=== PATIENT | female | born 1995 | race Two or more races ===

== ENCOUNTER 2024-07-20 10:40 | Observation (INO) | payer MEDICAID ==
--- NOTE | 2024-07-20 12:11 | DVH ---
LIMITED OB ULTRASOUND > 14 WKS: HISTORY: decreased FM TECHNIQUE: Multiple real-time grayscale images of the gravid uterus with duplex Doppler color flow an d M-mode spectral analysis. TRANSDUCER: Transabdominal. FINDINGS/IMPRESSION: IUP single live fetus at 26 weeks 5 days based on composite averages of the BPD, head circumference, abdominal circumference and femur length Estimated weight grams heart rate 148 beats per minute KATJA 20.1 cm Cervix measures 3.5 cm. Cephalic Presentation Anterior Placenta without previa or abruption.
--- NOTE | 2024-07-20 19:52 | DVHDS2 ---
Physician Discharge Progress N Final Diagnosis: DFM, resolved wellbeing established GDM, A2 Operations or Procedures: Operations or Procedures S: 28yo IUP@26.5wks, sent down from office for DFM. Denies UCs/LOF/VB/AGUILAR/vision changes/RUQ pain. Pt reports +FM in OB triage. O: VSS NST reactive A: 28yo IUP@26.5wks DFM, resolved wellbeing established GDM, A2 P: D/C home FKC/PTL precautions reviewed Dr. Mosley consulted, agrees with POC. Other Interventions Other Interventions [place] [address] Ph: [phone] DIAGNOSTIC IMAGING Diagnostic Imaging Report : [id number] Signed PATIENT: AARTI DANCT: [id number] UNIT: [id number] : 1995 LOC: [facility] ROOM / BED: [facility] / A AGE / SEX: 28 / F ADM STATUS: ADM IN SERVICE 1123 ORDERING PHYSICIAN: LITTLE ZHU CNM PROCEDURE(s): OBLTD - OBSTERICAL LIMITED REASON: decreased FM ORDER NUMBER(s): [id number], ACCESSION NUMBER(s): [id number] LIMITED OB ULTRASOUND > 14 WKS: HISTORY: decreased FM TECHNIQUE: Multiple real-time grayscale images of the gravid uterus with duplex Doppler color flow and M-mode spectral analysis. TRANSDUCER: Transabdominal. FINDINGS/IMPRESSION: IUP single live fetus at 26 weeks 5 days based on composite averages of the BPD, head circumference, abdominal circumference and femur length Estimated weight grams heart rate 148 beats per minute KATJA 20.1 cm Cervix measures 3.5 cm. Cephalic Presentation Anterior Placenta without previa or abruption. ATED BY: JOSIANE SETH MD DICTATED DATE/TIME: 07/20/241207 SIGNED BY: JOSIANE SETH MD SIGNED DATE/TIME: 07/20/241207 CC: Condition on Discharge: Stable Disposition: Home Discharge Instructions: Diet: Consistent carbohydrate Activity: No Restrictions, As Tolerated Medications: see med list Follow Up Care: Specialist: f/u in 1 wk Discharge Statement: "Patient was advised to return to the ER or call 911 if any headaches, dizziness, shortness of breath, chest pain, abdominal pain, bleeding, fevers, or worsening of medical condition. Patient was counseled about treatment plan, medications, possible side effects, patientverbalized understanding. All questions were answered to the best of my ability. This discharge took greater then 30 minutes in planning, reviewing documentation, counseling the patient, and discussing with other team members." Visit Coding OBGYN Date of Service: Jul 20, 2024 Billing Provider: LITTLE ZHU CNM TRACK HELPER Common Visit Codes: 81102-[id number] OBS CARE (HIGH) TRACK HELPER Procedure Codes: 10564-33- NON-STRESS TEST LITTLE ZHU CNM Jul 20, 2024 19:52
== END 2024-07-20 13:17 | disposition home or self-care (01) ==
LOC: LDRP 10:40
PROVIDERS: ADMIT Obstetrics & Gynecology; ATTEND Obstetrics & Gynecology
DX: O36.8120 Decreased fetal movements, second trimester, not applicable or unspecified (principal); O24.419 Gestational diabetes mellitus in pregnancy, unspecified control; Z98.890 Other specified postprocedural states; Z79.899 Other long term (current) drug therapy; Z3A.26 26 weeks gestation of pregnancy
CPT/HCPCS: 76815; 81002; G0378

== ENCOUNTER 2024-07-29 07:10 | Observation (INO) | payer MEDICAID ==
[2024-09-04] MEDS ORDERED: NITR-87 PO (12:11)
--- NOTE | 2024-09-04 12:11 | DVHDS2 ---
Physician Discharge Progress N Final Diagnosis: gdm 33wks Operations or Procedures: Operations or Procedures nst reactive reviwed,sono Condition on Discharge: Good Disposition: Home Discharge Instructions: Diet: Consistent carbohydrate Activity: No Restrictions, As Tolerated Medications: na Follow Up Care: Specialist: 3d Discharge Statement: "Patient was advised to return to the ER or call 911 if any headaches, dizziness, shortness of breath, chest pain, abdominal pain, bleeding, fevers, or worsening of medical condition. Patient was counseled about treatment plan, medications, possible side effects, patientverbalized understanding. All questions were answered to the best of my ability. This discharge took greater then 30 minutes in planning, reviewing documentation, counseling the patient, and discussing with other team members." Visit Coding OBGYN Date of Service: Sep 04, 2024 Billing Provider: TRINA OLIVA DO UTILITIES SERVICE INVESTIGATOR Common Visit Codes: 48320-[id number] OBS CARE (HIGH) UTILITIES SERVICE INVESTIGATOR Procedure Codes: 63542-34- NON-STRESS TEST TRINA OLIVA DO Sep 04, 2024 12:11
--- NOTE | 2024-09-04 12:32 | DVH ---
BIOPHYSICAL PROFILE HISTORY: GDMA2 Comparison Study: None TECHNIQUE: Multiple real-time grayscale sonographic images through the gravid uterus of the fetus wit h duplex doppler color flow and M-mode spectral analysis FINDINGS: BIOPHYSICAL PROFILE: breathing score: 2 movement score: 2 tone score: 2 Quantitative KATJA score: 2 (KATJA: 16.6 cm.) Total score: 8/8 Single live fetus in cephalic presentation. heart rate 140 beats per minute. Grade anterior placenta without previa or abruption Biophysical profile score 8/8 corresponding to an JESSICA of 10/21/24 IMPRESSION: Biophysical profile score: 8/8
== END 2024-09-04 12:24 | disposition home or self-care (01) ==
LOC: LDRP 09-04 10:55
PROVIDERS: ADMIT Obstetrics & Gynecology; ATTEND Obstetrics & Gynecology
DX: O24.419 Gestational diabetes mellitus in pregnancy, unspecified control (principal); Z3A.33 33 weeks gestation of pregnancy; Z79.899 Other long term (current) drug therapy; Z98.890 Other specified postprocedural states
CPT/HCPCS: 59025; 76819; 81002; 82948; 82962; 94760; G0378

== ENCOUNTER 2024-09-07 06:35 | Observation (INO) | payer MEDICAID ==
[~2024-09-07 06:35] MED LIST: NITR-87 PO
--- NOTE | 2024-09-07 11:04 | DVH ---
CLINICAL HISTORY: Gestational diabetes. COMPARISON: US BIOPHYSICAL PROFILE on DOS: 09/04/24 TECHNIQUE: biophysical profile was performed. Transabdominal sonographic images of the fetus we re obtained. FINDINGS: The fetus is in cephalic position. heart rate measures 138 BPM. Amniotic fluid index measures 17 cm. The placenta is anterior in position with no evidence of previa or abruption. BPP profile is an overall score of 8/8, with 2/2 points for breathing, with at least one episode of breathing over a 30 second duration during a 30 minute observation, 2/2 points for m ovements, with 3 or more discrete body or limb movements, 2/2 points for tone, with one or more episodes of extremity extension with return to flexion, or opening and closing of hand, and 2/ 2 points for amniotic fluid, with at least 1 pocket of amniotic fluid that measures 2 cm in 2 perpend icular planes. IMPRESSION: BPP score of 8/8.
[2024-09-07] MEDS ORDERED: PREN-96 PO (11:49)
[2024-09-07] MEDS ORDERED: METF-370 PO (11:50)
--- NOTE | 2024-09-07 16:36 | DVHDS2 ---
Physician Discharge Progress N Final Diagnosis: testing for GDM, A2 Operations or Procedures: Operations or Procedures 28YO iup@33.5wks VSS NST reactive FKC/PTL precautions reviewed Dr. Mosley consulted, agrees with POC. Other Interventions Other Interventions [address] [address] Ph: [phone] DIAGNOSTIC IMAGING Diagnostic Imaging Report : [id number] Signed PATIENT: AARTI DANCT: [id number] UNIT: [id number] : 1995 LOC: [facility] ROOM / BED: [facility] / A AGE / SEX: 28 / F ADM STATUS: ADM IN SERVICE 0938 ORDERING PHYSICIAN: LITTLE ZHU CNM PROCEDURE(s): BPP - BIOPHYSICAL PROFILE REASON: GDMA2 ORDER NUMBER(s): [id number], ACCESSION NUMBER(s): [id number] CLINICAL HISTORY: Gestational diabetes. COMPARISON: US BIOPHYSICAL PROFILE on DOS: 09/04/24 TECHNIQUE: biophysical profile was performed. Transabdominal sonographic images of the fetus were obtained. FINDINGS: The fetus is in cephalic position. heart rate measures 138 BPM. Amniotic fluid index measures 17 cm. The placenta is anterior in position with no evidence of previa or abruption. BPP profile is an overall score of 8/8, with 2/2 points for breathing, with at least one episode of breathing over a 30 second duration during a 30 minute observation, 2/2 points for movements, with 3 or more discrete body or limb movements, 2/2 points for tone, with one or more episodes of extremity extension with return to flexion, or opening and closing of hand, and 2/2 points for amniotic fluid, with at least 1 pocket of amniotic fluid that measures 2 cm in 2 perpendicular planes. IMPRESSION: BPP score of 8/8. ATED BY: SP CHAPIN DO DICTATED DATE/TIME: 09/07/24 110 SIGNED BY: SP CHAPIN DO SIGNED DATE/TIME: 09/07/24 110 CC: Condition on Discharge: Stable Disposition: Home Discharge Instructions: Diet: Consistent carbohydrate Activity: No Restrictions, As Tolerated Medications: see med list Follow Up Care: Specialist: f/u in 3 days Discharge Statement: "Patient was advised to return to the ER or call 911 if any headaches, dizziness, shortness of breath, chest pain, abdominal pain, bleeding, fevers, or worsening of medical condition. Patient was counseled about treatment plan, medications, possible side effects, patientverbalized understanding. All questions were answered to the best of my ability. This discharge took greater then 30 minutes in planning, reviewing documentation, counseling the patient, and discussing with other team members." Visit Coding OBGYN Date of Service: Sep 07, 2024 Billing Provider: LITTLE ZHU CNM TYPESETTING SUPERVISOR Common Visit Codes: 12738-[id number] OBS CARE (HIGH) TYPESETTING SUPERVISOR Procedure Codes: 30191-91- NON-STRESS TEST LITTLE ZHU CNM Sep 07, 2024 16:36
== END 2024-09-07 12:09 | disposition home or self-care (01) ==
LOC: LDRP 09:38 → UNDOADMOB 09:38 → LDRP 10:36 → UNDODISOB 12:09
PROVIDERS: ADMIT Obstetrics & Gynecology; ATTEND Obstetrics & Gynecology
DX: O24.419 Gestational diabetes mellitus in pregnancy, unspecified control (principal); Z3A.33 33 weeks gestation of pregnancy; Z79.899 Other long term (current) drug therapy; Z98.890 Other specified postprocedural states
CPT/HCPCS: 59025; 76819; 81002; 82948; 82962; 94760; G0378

== ENCOUNTER 2024-09-10 07:11 | Observation (INO) | payer MEDICAID ==
[~2024-09-10 07:11] MED LIST changes: +METF-370 PO; +PREN-96 PO
--- NOTE | 2024-09-14 11:09 | DVH ---
CLINICAL HISTORY: Gestational diabetes. COMPARISON: US BIOPHYSICAL PROFILE on DOS: 09/07/24, US BIOPHYSICAL PROFILE on DOS: 09/04/24 TECHNIQUE: biophysical profile was performed. Transabdominal sonographic images of the fetus we re obtained. FINDINGS: The fetus is in cephalic position. heart rate measures 153 BPM. Amniotic fluid index measures 15.1 cm. The placenta is anterior in position without visualized evidence for placenta previ a or abruption. BPP profile is an overall score of 8/8, with 2/2 points for breathing, with at least one episode of breathing over a 30 second duration during a 30 minute observation, 2/2 points for m ovements, with 3 or more discrete body or limb movements, 2/2 points for tone, with one or more episodes of extremity extension with return to flexion, or opening and closing of hand, and 2/ 2 points for amniotic fluid, with at least 1 pocket of amniotic fluid that measures 2 cm in 2 perpend icular planes. IMPRESSION: BPP score of 8/8.
--- NOTE | 2024-09-14 12:21 | DVHDS2 ---
Physician Discharge Progress N Final Diagnosis: testing for GDM, A2 Operations or Procedures: Operations or Procedures 28yo IUP@34.5wks VSS NST reactive FKC/PTL precautions reviewed Dr. Mosley consulted, agrees with POC. Other Interventions Other Interventions [address] [address] Ph: [phone] DIAGNOSTIC IMAGING Diagnostic Imaging Report : [id number] Signed PATIENT: AARTI DANCT: [id number] UNIT: [id number] : 1995 LOC: [facility] ROOM / BED: [facility] / A AGE / SEX: 28 / F ADM STATUS: ADM IN SERVICE 1022 ORDERING PHYSICIAN: LITTLE ZHU CNM PROCEDURE(s): BPP - BIOPHYSICAL PROFILE REASON: GDMA2 ORDER NUMBER(s): [id number], ACCESSION NUMBER(s): [id number] CLINICAL HISTORY: Gestational diabetes. COMPARISON: US BIOPHYSICAL PROFILE on DOS: 09/07/24, US BIOPHYSICAL PROFILE on DOS: 09/04/24 TECHNIQUE: biophysical profile was performed. Transabdominal sonographic images of the fetus were obtained. FINDINGS: The fetus is in cephalic position. heart rate measures 153 BPM. Amniotic fluid index measures 15.1 cm. The placenta is anterior in position without visualized evidence for placenta previa or abruption. BPP profile is an overall score of 8/8, with 2/2 points for breathing, with at least one episode of breathing over a 30 second duration dur ing a 30 minute observation, 2/2 points for movements, with 3 or more discrete body or limb movements, 2/2 points for tone, with one or more episodes of extremity extension with return to flexion, or opening and closing of hand, and 2/2 points for amniotic fluid, with at least 1 pocket of amniotic fluid that measures 2 cm in 2 perpendicular planes. IMPRESSION: BPP score of 8/8. ATED BY: SP CHAPIN DO DICTATED DATE/TIME: 09/14/24 110 SIGNED BY: SP CHAPIN DO SIGNED DATE/TIME: 09/14/241106 CC: Condition on Discharge: Stable Disposition: Home Discharge Instructions: Diet: Consistent carbohydrate Activity: No Restrictions, As Tolerated Medications: see med list Follow Up Care: Specialist: f/u in 3 days Discharge Statement: "Patient was advised to return to the ER or call 911 if any headaches, dizziness, shortness of breath, chest pain, abdominal pain, bleeding, fevers, or worsening of medical condition. Patient was counseled about treatment plan, medications, possible side effects, patientverbalized understanding. All questions were answered to the best of my ability. This discharge took greater then 30 minutes in planning, reviewing documentation, counseling the patient, and discussing with other team members." Visit Coding OBGYN Date of Service: Sep 14, 2024 Billing Provider: LITTLE ZHU CNM POWERTRAIN CONTROL SYSTEMS ENGINEER Common Visit Codes: 55010-[id number] OBS CARE (HIGH) POWERTRAIN CONTROL SYSTEMS ENGINEER Procedure Codes: 55154-69- NON-STRESS TEST LITTLE ZHU CNM Sep 14, 2024 12:21
== END 2024-09-14 11:48 | disposition home or self-care (01) ==
LOC: UNDOADMOB 09-14 10:15 → LDRP 09-14 10:15 → UNDODISOB 09-14 11:48
PROVIDERS: ADMIT Obstetrics & Gynecology; ATTEND Obstetrics & Gynecology
DX: O24.419 Gestational diabetes mellitus in pregnancy, unspecified control (principal); Z98.890 Other specified postprocedural states; Z3A.34 34 weeks gestation of pregnancy; Z79.899 Other long term (current) drug therapy
CPT/HCPCS: 59025; 76819; 81002; 82948; 82962; 94760; G0378

== ENCOUNTER 2024-09-20 10:44 | Observation (INO) | payer MEDICAID ==
--- NOTE | 2024-09-20 12:25 | DVH ---
CLINICAL HISTORY: Gestational diabetes. COMPARISON: US BIOPHYSICAL PROFILE on DOS: 09/14/24, US BIOPHYSICAL PROFILE on DOS: 09/07/24, US BIOPHY SICAL PROFILE on DOS: 09/04/24 TECHNIQUE: biophysical profile was performed. Transabdominal sonographic images of the fetus we re obtained. FINDINGS: The fetus is in cephalic position. heart rate measures 159 BPM. Amniotic fluid index measures 17.7 cm. The placenta is anterior in position without visualized evidence for previa or abru ption. BPP profile is an overall score of 8/8, with 2/2 points for breathing, with at least one episode of breathing over a 30 second duration during a 30 minute observation, 2/2 points for m ovements, with 3 or more discrete body or limb movements, 2/2 points for tone, with one or more episodes of extremity extension with return to flexion, or opening and closing of hand, and 2/ 2 points for amniotic fluid, with at least 1 pocket of amniotic fluid that measures 2 cm in 2 perpend icular planes. IMPRESSION: BPP score of 8/8.
--- NOTE | 2024-09-21 06:22 | DVHDS2 ---
Discharge Summary Date of Admission Sep 20, 2024 at 10:48 Date of Discharge: Sep 20, 2024 Admitting Diagnosis GDM A2 35 weeks Labs/Diagnostic Data: ne Laboratory Results Test 09/20/24 11:27 POC Glucose 101 mg/dl (70-106) Brief Hx & Hospital Course: Patient here for NST which was performed as Consults/Reason for consult Ultrasound reassuring Condition at Discharge: Good Final Diagnosis/Problems List GDM 35 weeks GDM A2 reassuring Discharge Disposition: Home Discharge Instruct/Medications Diet: Consistent carbohydrate Activity: Light activity Activity comment: Kick counts labor precautions Follow Up/Referral: As scheduled Discharge Statement: "Patient was advised to return to the ER or call 911 if any headaches, dizziness, shortness of breath, chest pain, abdominal pain, bleeding, fevers, or worsening of medical condition. Patient was counseled about treatment plan, medications, possible side effects, patientverbalized understanding. All questions were answered to the best of my ability. This discharge took greater then 30 minutes in planning, reviewing documentation, counseling the patient, and discussing with other team members." ASSESSMENT ASSESSMENT Assessment Visit Coding OBGYN Date of Service: Sep 20, 2024 Billing Provider: MONET DUNCAN DO RELISH MAKER Common Visit Codes: 67441-PJE/OBS SAME DATE (LOW), 27999-TYP/OBS SAME DATE (MOD), 98832-PJA/OBS SAME DATE (HIGH) RELISH MAKER Procedure Codes: 89877-29- NON-STRESS TEST MONET DUNCAN DO Sep 21, 2024 06:22
== END 2024-09-20 12:10 | disposition home or self-care (01) ==
LOC: LDRP 10:44 → UNDOADMOB 10:44 → LDRP 10:48
PROVIDERS: ADMIT Obstetrics & Gynecology; ATTEND Obstetrics & Gynecology
DX: O24.419 Gestational diabetes mellitus in pregnancy, unspecified control (principal); Z98.890 Other specified postprocedural states; Z79.899 Other long term (current) drug therapy; Z3A.35 35 weeks gestation of pregnancy
CPT/HCPCS: 59025; 76819; 81002; 82948; 82962; 94760; G0378

== ENCOUNTER 2024-09-25 07:35 | Observation (INO) | payer MEDICAID | END 2024-09-25 08:30 | disposition left against medical advice (07) | LOC: LDRP 08:14 | PROVIDERS: ADMIT Obstetrics & Gynecology; ATTEND Obstetrics & Gynecology | DX: Z36.89 Encounter for other specified antenatal screening (principal); Z3A.00 Weeks of gestation of pregnancy not specified ==

== ENCOUNTER 2024-09-25 10:15 | Observation (INO) | payer MEDICAID ==
--- NOTE | 2024-09-25 11:17 | DVH ---
BIOPHYSICAL PROFILE HISTORY: GDMA2 Comparison Study: US BIOPHYSICAL PROFILE on DOS: 09/20/24, US BIOPHYSICAL PROFILE on DOS: 09/14/24, US BIOPHYSICAL PROFILE on DOS: 09/07/24 TECHNIQUE: Multiple real-time grayscale sonographic images through the gravid uterus of the fetus wit h duplex doppler color flow and M-mode spectral analysis FINDINGS: BIOPHYSICAL PROFILE: breathing score: 2 movement score: 2 tone score: 2 Quantitative KATJA score: 2 (KATJA: 12.0 cm.) Total score: 8/8 Single live fetus in cephalic presentation. heart rate 156 beats per minute. Anterior placenta without previa or abruption Biophysical profile score 8/8 corresponding to an JESSICA of 10/21/24 IMPRESSION: Biophysical profile score: 8/8
--- NOTE | 2024-09-26 21:32 | DVHDS2 ---
Physician Discharge Progress N Final Diagnosis: gdm 36wks Operations or Procedures: Operations or Procedures nst reactive reviwed,sono Condition on Discharge: Good Disposition: Home Discharge Instructions: Diet: Consistent carbohydrate Activity: No Restrictions, As Tolerated Follow Up/Referral: as scheduled Medications: na Follow Up Care: Specialist: 4d Discharge Statement: "Patient was advised to return to the ER or call 911 if any headaches, dizziness, shortness of breath, chest pain, abdominal pain, bleeding, fevers, or worsening of medical condition. Patient was counseled about treatment plan, medications, possible side effects, patientverbalized understanding. All questions were answered to the best of my ability. This discharge took greater then 30 minutes in planning, reviewing documentation, counseling the patient, and discussing with other team members." Visit Coding OBGYN Date of Service: Sep 25, 2024 Billing Provider: TRINA OLIVA DO REVENUE COORDINATOR Common Visit Codes: 54881-KHSDMGC INP/OBS CARE (HIGH) REVENUE COORDINATOR Procedure Codes: 26586-76- NON-STRESS TEST TRINA OLIVA DO Sep 26, 2024 21:32
== END 2024-09-25 11:30 | disposition home or self-care (01) ==
LOC: LDRP 10:15
PROVIDERS: ADMIT Obstetrics & Gynecology; ATTEND Obstetrics & Gynecology
DX: O24.419 Gestational diabetes mellitus in pregnancy, unspecified control (principal); Z98.890 Other specified postprocedural states; Z79.899 Other long term (current) drug therapy; Z3A.36 36 weeks gestation of pregnancy
CPT/HCPCS: 59025; 76819; 81002; 82948; 82962; 94760; G0378

== ENCOUNTER 2024-10-12 06:23 | Inpatient (IN) | payer MEDICAID ==
[~2024-10-12] VITALS: Ht 144.8 cm; Wt 68.0 kg
[2024-10-12] MEDS ORDERED: NALBUPHINE HCL 10 MG/1ml INJECTION IV PRN (06:45)
[2024-10-12] MEDS ORDERED: NALBUPHINE HCL 10 MG/1ml INJECTION IM PRN (06:45)
[2024-10-12] MEDS ORDERED: LIDOCAINE 2%HCL (LOCAL ANESTH.) INJ 20ML MDV IJ PRN (06:45)
[2024-10-12] MEDS ORDERED: PHISODERM TOP SOLN 240ML BTL TOP PRN (06:45)
[2024-10-12] MEDS ORDERED: LACTATED RINGER'S 1,000 ML IV SCH (06:45)
[2024-10-12] MEDS ORDERED: LIDOCAINE 2%HCL (LOCAL ANESTH.) INJ 10ml MDV ONE (06:59)
--- NOTE | 2024-10-12 07:04 | DVHHP2 ---
OB CC & HPI Date Date of Admission: Oct 12, 2024 Patient Identification: : 3 Para: 2 EDC: Oct 21, 2024 EGA: 38.5wks Chief Complaints: Reason for admission: active labor History of Present Complaints 28yo IUP@38.5wks presents in active labor. Pt reports UCs Q3 min that started last night and SROM with clear fluid today at 0400. Denies VB/AGUILAR/vision changes/RUQ pain. Endorses +FM. PNC: Routine PNC at [facility] OB, adequate visits, PNC complicated by GDM, A2. dating based on 7wk sono, GBS negative. OB hx: x2, uncomplicated Past Medical History Cardiac: No pertinent Hx Pulmonary: No pertinent Hx Central Nervous System: No pertinent Hx GI: No pertinent Hx Hemotology/Oncology: No pertinent Hx Hepatobiliary: No pertinent Hx Psychiatric: No pertinent Hx Musculoskeletal: No pertinent Hx Rheumotologic: No pertinent Hx Infectious Disease: No peritnent Hx ENT: No pertinent Hx Renal/: No pertinent Hx Endocrine: No pertinent Hx Dermatology: No pertinent Hx Past Surgical History: No pertinent Hx OB History OB History Care: Good Care Ultrasounds: Normal mid trimester US Obstetrical Complications: Gestational Diabetes (A2) Medical Complications: None Allergies: Coded Allergies: NO KNOWN ALLERGIES (Unverified , 10/12/24) Home Meds Reported Medications Metformin Hydrochloride (Metformin Hcl) 500 Mg Tab, 500 MG PO, TAB 09/07/24 Vit W/ Ferrous Fumara ( One Daily) Daily Tab, 1 TAB PO DAILY, #90 TAB 3 Refills 09/07/24 Nitrofurantoin Monohydrate Mac (Macrobid) 100 Mg Cap, 100 MG PO BID for 2 Days, CAP 09/04/24 Current Medications Current Medications Medications (Trade) Dose Ordered Sig/Estrella Route PRN Reason Start Time Stop Time Status Last Admin Lactated Ringer's 1,000 ml @ 125 mls/hr Q8H IV 10/12/24 06:45 UNV Nalbuphine HCl (Nubain) 10 mg Q4HP PRN IM MODERATE PAIN (4-6 PAIN SCALE) 10/12/24 06:45 UNV Nalbuphine HCl (Nubain) 10 mg Q4HP PRN IV MODERATE PAIN (4-6 PAIN SCALE) 10/12/24 06:45 UNV Diagnostic Test (Pha) (Accu-Chek Comfort Curve T) 1 strip 2XW 10/12/24 12:00 UNV Witch Trisha (Tucks) 1 pad PRN PRN TOP PERINEAL AREA DISCOMFORT 10/12/24 06:45 UNV Sodium Lauryl Sulfate (Phisoderm) 240 ml PRN PRN TOP PERINEAL AREA DISCOMFORT 10/12/24 06:45 UNV Benzocaine (Dermoplast) 1 applic PRN PRN TOP PERINEAL AREA DISCOMFORT 10/12/24 06:45 UNV Lidocaine HCl (Xylocaine) 20 ml ONCE PRN IJ PERINEAL AREA DISCOMFORT 10/12/24 06:45 UNV Family & Social History Family/Social History Past Family/Social History: denies Blood Type: O+ Rubella: immune RPR/VDRL: Negative GBS Status: Negative HBsAG: Negative Review of Systems Constitutional: No symptom reported Ears, Nose, & Throat: No symptom reported Eyes: No symptom reported Pulmonary/Respiratory: No symptom reported Cardiovascular: No symptom reported Gastrointestinal: No symptom reported Genitourinary: No symptom reported Musculoskeletal: No symptom reported Skin: No symptom reported Psychiatric: No symptom reported Endocrine: No symptom reported Hemotologic/Lymphatic: No symptom reported OB Admission Exam Physical Exam Vitals: VSS, see CPN HEENT: TMs Normal, Fontanelles Normal, Nasal Mucosa Normal, Eyes non-injected, Oropharynx Normal, PERRLA, Moist Membranes, EOMI Heart: Rhythm Normal Lungs: Clear Abdomen: Gravid Extremities: Normal Reflexes: Normal Pelvic Exam: SVE by RN: 10/100/0 Membranes: Ruptured Amniotic Fluid: Clear Heart Rate: 150's Accelerations: Accelerations Present Decelerations: Early Decelerations Snf Variability: Average (6-25) Contractions on Admission: < 5 Minutes Apart Intensity: Firm OB Plan Plan Admitting Diagnosis: active labor Plan: Expectant Management Other Plan: A: 28yo IUP@38.5wks Active labor GDM, A2 Category I EFM SROM, clear fluid GBS negative P: Admit to L&D Informed consent obtained Expectant management monitoring per order Routine labs ordered Intrauterine resuscitation PRN Anticipate CNSong is co-managing care with Dr. Mosley. Visit Coding OBGYN Date of Service: Oct 12, 2024 Billing Provider: LITTLE ZHU CNM MDM DEVELOPER Common Visit Codes: 54398-[id number] INP/OBS CARE (HIGH) MDM DEVELOPER Procedure Codes: 00407-29- NON-STRESS TEST LITTLE ZHU CNM Oct 12, 2024 07:04
[2024-10-12] MEDS ORDERED: PHISODERM TOP SOLN 240ML BTL TOP ONE (07:10)
[2024-10-12 07:22] LABS: Hematocrit 37.5 % (36.0-46.0); Hemoglobin 12.1 g/dL (12.2-16.2); Mean Corpuscular Hemoglobin 26.5 pg (28.0-32.0); Mean Corpuscular Volume 81.6 fL (80.0-100.0); Nucleated Red Blood Cells % 0.0 %
[2024-10-12 07:33] LABS: Urine Protein, UAD TRACE (Negative)
[2024-10-12 07:44] LABS: INR 0.86 (0.9-1.15); Partial Thromboplastin Time 22.7 SEC (24.5-34.5); Prothrombin Time 9.3 sec (9.3-11.8)
[2024-10-12 07:46] LABS: Albumin 3.9 g/dL (3.2-4.8); Anion Gap 13 (5-15); BUN/Creatinine Ratio 14.9 (10.0-20.0); Blood Urea Nitrogen 10 mg/dL (9-23); Calcium 9.5 mg/dL (8.7-10.4); Potassium 3.9 mmol/L (3.5-5.1); Sodium 138 mmol/L (136-145); Total Protein 6.4 g/dL (5.7-8.2)
[2024-10-12 07:46] LABS: Amphetamine Screen, Urine Neg (NEGATIVE); Barbiturate Scree,Urine Neg (NEGATIVE); Benzodiazephine Screen, Urine Neg (NEGATIVE); Cocaine Screen, Urine Neg (NEGATIVE)
[2024-10-12 07:47] LABS: Bilirubin, Total 0.4 mg/dL (0.2-1.0)
[2024-10-12 07:48] LABS: Alanine Aminotransferase 47 U/L (7-40); Alkaline Phosphatase 318 U/L (46-116); Carbon Dioxide 17 mmol/L (20-31); Chloride 108 mmol/L (98-107); Glucose 119 mg/dL (74-106)
[2024-10-12 07:48] LABS: Cannabinoid Screen, Urine Neg (NEGATIVE); Opiate Scree,Urine Neg (NEGATIVE); Phencyclidine Screen, Urine Neg (NEGATIVE)
--- NOTE | 2024-10-12 08:22 | LDN2 ---
Labor and Delivery Note Date 10/12/24 Age 28 3 Para now 3 AB 0 EDC 10/21/2024 EGA 38.5 weeks Diagnosis , Precipitous delivery Vaginal Delivery: VTX Vacuum Assisted: No Placenta: Spontaneous Sex: Female Weight pending Apgars 9/9 Nuchal Cord Transected: No Amniotic Fluid: Clear Anesthesia Local Episiotomy: No Extension: No Repaired with 3.0 Vicryl EBL QBL 400mL Complications None Conditions Stable Grinding Wheel Inspector Oniel Comments/Significant Med Otilio At 0647 this 28yo now delivered a viable Female by precipitous , w/ APGARS /. SUREKHA presentation. placed skin to skin on pts chest. Cord clamped and cut after pulsation ceased. Cord blood sent. Pitocin IV bolus started. Intact 3-vessel cord, placenta delivered spontaneously, Tony. Placenta sent to pathology. Patient had local anesthesia. Cervix/vagina inspected (intact) and first degree perineal laceration present which was repaired with 3-0 vicryl suture. Fundus at U, firm, midline, and light lochia. QBL 400ml. VSS. Count correct x2. Patient to care and baby to couplet care, both stable. Visit Coding OBGYN Date of Service: Oct 12, 2024 Billing Provider: LITTLE ZHU CNM ED MANAGER Common Visit Codes: PROCEDURE ONLY ED MANAGER Procedure Codes: 10509-FXR DELIVERY ONLY OMA LOZADA STUDENTMDW Oct 12, 2024 08:22
[2024-10-12] MEDS ORDERED: ONDANSETRON HCL 4 MG/2 ML VIAL IV PRN (09:15)
[2024-10-12] MEDS ORDERED: ACETAMINOPHEN 325 MG TAB PO PRN (09:15)
[2024-10-12 09:30] VITALS: PULSE 73; RESP 18; O2SAT 97
[2024-10-12] MEDS: DERMOPLAST 60ML BOTTLE TOP PRN (09:31)
[2024-10-12] MEDS: WITCH HAZEL-GLYCERIN PAD TOP PRN (09:31)
[2024-10-12 11:00] VITALS: BP 116/70; PULSE 80; RESP 20; TEMP 98.2; O2SAT 97
[2024-10-12] MEDS ORDERED: ACCU-CHEK COMFORT CURVE STRIP VI SCH (12:00)
[2024-10-12] MEDS: LACT. RINGERS/OXYTOCIN 20UNITS 500 ML IV ONE ×2 (12:56→12:57)
[2024-10-12 14:43] VITALS: BP 112/65; PULSE 73; RESP 18; TEMP 98; O2SAT 98
[2024-10-12 19:00] VITALS: BP 110/60; PULSE 75; RESP 16; TEMP 98.3; O2SAT 99
[2024-10-12] MEDS ORDERED: DOCU-94 PO (21:49)
[2024-10-12] MEDS ORDERED: DOCU-265 PO (21:49)
[2024-10-12] MEDS ORDERED: PREN-96 PO (21:49)
[2024-10-12] MEDS ORDERED: IBU600T PO (21:49)
[2024-10-12] MEDS: DOCUSATE SOD 100 MG CAP PO SCH (22:00)
[2024-10-12 23:00] VITALS: BP 105/48; PULSE 73; RESP 16; TEMP 98; O2SAT 99
--- NOTE | 2024-10-13 00:45 | DVHPN2 ---
Progress Note Date Seen: Oct 13, 2024 Subjective S: bleeding is less, eating food without issues, denies lightheaded/dizziness, pain well controlled with oral medications, no concerns with urinating, passing flatus, no BM yet, ambulating well, and formula vital signs Vital Sign Date Time Temp Pulse Resp B/P (MAP) Pulse Ox O2 Delivery O2 Flow Rate FiO2 10/12/24 14:43 98.0 73 18 112/65 (81) 98 98.0 10/12/24 09:30 Room Air Total Intake and Output 10/12/24 10/12/24 10/13/24 15:00 23:00 07:00 Output Total 1700 ml Balance -1700 ml medications Current Medications Medications Dose Ordered Sig/Estrella Route Start Time Stop Time Status Last Admin Dose Admin Ryan Rico 1 pad PRN PRN TOP 10/12/24 06:45 10/12/24 09:31 1 PAD Sodium Lauryl Sulfate 240 ml PRN PRN TOP 10/12/24 06:45 Benzocaine 1 applic PRN PRN TOP 10/12/24 06:45 10/12/24 09:31 1 APPLIC Ibuprofen 600 mg Q6HP PRN PO 10/12/24 09:15 Acetaminophen 650 mg Q4HP PRN PO 10/12/24 09:15 Docusate Sodium 200 mg HS PO 10/12/24 22:00 laboratory and microbiology Laboratory Tests 10/12/24 07:10 Test 10/12/24 07:10 Range/Units Serum Glucose 119 H 74-106 mg/dL Objective O: VSS Chest: heart sounds normal and lung sounds clear bilaterally Abd: soft, non-tender, fundus at U/firm/midline, active bowel sounds, no rebound or guarding Perineum: sutures intact, edges well approximated, no erythema/edema noted Ext: Non-tender, No edema, 2+ BLE DTRs Lochia: minimal See lab results Problems(with codes): (1) First degree perineal laceration during delivery (2) (normal spontaneous vaginal delivery) (3) Precipitous drop in hematocrit (4) Precipitous delivery Assessment/Plan A: 28yo now PPD#1 s/p Rh+ Rubella Immune Breast and formula feeding P: D/C home today Rx sent to pharmacy precautions and preeclampsia warning signs reviewed F/U with Dr. Mosley in 2 weeks Plan discussed with: Patient, Spouse Visit Coding OBGYN Date of Service: Oct 13, 2024 Billing Provider: LITTLE ZHU CNM [employer] Common Visit Codes: [id number] INP/OBS CARE(MOD) LITTLE ZHU CNM Oct 13, 2024 00:45
--- NOTE | 2024-10-13 00:45 | DVHDS2 ---
Obstetrics Discharge Summary Obstetrics Discharge Summary Date of Admission: Oct 12, 2024 Date of Discharge: Oct 13, 2024 Reason For Admission: Onset of Labor (SROM) Procedures: NST, Mgmt of Obstetrics Compli (GDM, A2) Intrapartum Procedures: Spontaneous vaginal deliv Procedures: Hct/date: (10/13/24), Hgb/date: (10/13/24) Operative Complicat: Laceration (first degree perineal laceration) Discharge Diagnosis: Term -Delivered Discharge Information: Activity (as tolerated, no heavy lifting and nothing in the vagina for 6 weeks), Diet (Routine), Medications (Rx sent), Instructions (Routine), Discharge to (Home), Accompanied by (partner), Discarge date (10/13/24) Visit Coding OBGYN Date of Service: Oct 13, 2024 Billing Provider: LITTLE ZHU CNM MANAGER [employer] Common Visit Codes: 85460-IOX/OBS DISCH DAY <30MIN LITTLE ZHU CNM Oct 13, 2024 00:45
[2024-10-13 03:00] VITALS: BP 105/53; PULSE 74; RESP 16; TEMP 98.5; O2SAT 100
[2024-10-13] MEDS: IBUPROFEN 600 MG TAB PO PRN (03:51)
[2024-10-13 06:46] LABS: Hematocrit 30.8 % (36.0-46.0); Hemoglobin 10.3 g/dL (12.2-16.2); Mean Corpuscular Hemoglobin 26.7 pg (28.0-32.0); Mean Corpuscular Volume 79.9 fL (80.0-100.0); Nucleated Red Blood Cells % 0.0 %
[2024-10-13 07:18] VITALS: BP 100/53; PULSE 68; RESP 16; TEMP 98.3; O2SAT 100
== END 2024-10-13 13:20 | disposition home or self-care (01) | DRG 560 ==
LOC: LDRP 06:23
PROVIDERS: ADMIT Obstetrics & Gynecology; ATTEND Obstetrics & Gynecology
PROC: 10E0XZZ Delivery of Products of Conception, External Approach (ICD-10-PCS; principal; 2024-10-12)
PROC: 0HQ9XZZ Repair Perineum Skin, External Approach (ICD-10-PCS; 2024-10-12)
DX: O24.424 Gestational diabetes mellitus in childbirth, insulin controlled (principal); Z37.0 Single live birth; R71.0 Precipitous drop in hematocrit; O62.3 Precipitate labor; Z3A.38 38 weeks gestation of pregnancy; O70.0 First degree perineal laceration during delivery
CPT/HCPCS: 36415; 59409; 80053; 80307; 81001; 85025; 85610; 85730; 86780; 86803; 86850; 86900; 86901; 94760; 96360; 96365; 96366; G0378; J2003